=== PATIENT | female | born 1950 | race Caucasian/White ===

== ENCOUNTER 2020-11-13 09:42 | Emergency (ER) | payer OTHER, MEDICARE, SELFPAY ==
[2020-11-13 09:56] VITALS: BP 152/92; PULSE 80; RESP 14; TEMP 36.6; O2SAT 99
--- NOTE | 2020-11-13 10:50 | ED.ANIMALBIT ---
HPI - Animal Bite General Chief Complaint: Animal Bite <Tran Davies PA-C - Last Filed: 11/13/20 10:55> Stated Complaint: dog bite <Tran Davies PA-C - Last Filed: 11/13/20 10:55> Time Seen by Provider: 11/13/20 10:33 <Tran Davies PA-C - Last Filed: 11/13/20 10:55> Source: patient <ROSA Castaneda Last Filed: 11/13/20 10:55> Mode of arrival: ambulatory <Tran Davies PA-C - Last Filed: 11/13/20 10:55> Limitations: no limitations <Tran Davies PA-C - Last Filed: 11/13/20 10:55> History of Present Illness HPI narrative: This is a 70-year-old female that presents to the emergency department after a dog bite yesterday. Reports she was at work and was bitten by a pit bull on the stomach. Reports bruising and pain to the area. Also reports the dog scratched her leg. She was told that the dog is up-to-date on its vaccinations. She is up-to-date on her tetanus vaccine. She cleaned the area and has applied some antibiotic ointment. Denies fever, erythema, edema, or abnormal drainage. <Tran Davies PA-C - Last Filed: 11/13/20 10:55> Related Data Allergies/Adverse Reactions: Allergies Allergy/AdvReac Type Severity Reaction Status Date / Time No Known Allergies Allergy Verified 11/13/20 10:00 <Tran Davies PA-C - Last Filed: 11/13/20 10:55> Review of Systems Review of Systems: CONSTITUTIONAL: Denies fever SKIN: Reports animal bite <Tran Davies PA-C - Last Filed: 11/13/20 10:55> All systems reviewed & are unremarkable except as noted in HPI and below <Tran Davies PA-C - Last Filed: 11/13/20 10:55> [facility] Past Medical History Medical History: Medical History (Updated 11/13/20 @ 10:54 by Tran Davies PA-C) No active medical problems <Tran Davies PA-C - Last Filed: 11/13/20 10:55> Social History Social History: Social History (Updated 11/13/20 @ 10:51 by Tran Davies PA-C) Smoking status: Current every day smoker <Tran Davies PA-C - Last Filed: 11/13/20 10:55> Exam Narrative: GENERAL: Well-appearing, well-nourished, and in no acute distress. HEAD: Normocephalic, atraumatic. EYES: EOMI. ABDOMEN: Soft, nondistended. Right lower abdomen with small area of bruising with superficial abrasions EXTREMITIES: Normal range of motion. No edema. Right upper leg with small area of bruising with superficial abrasions SKIN: Warm, dry, no rash. NEURO: No focal deficits. Alert and oriented x3. PSYCH: Normal mood and affect <Tran Davies PA-C - Last Filed: 11/13/20 10:55> Course Vital Signs Vital signs: Vital Signs Temperature 97.8 F 11/13/20 09:56 Pulse Rate 80 11/13/20 09:56 Respiratory Rate 14 11/13/20 09:56 Blood Pressure 152/92 H 11/13/20 09:56 Pulse Oximetry 99 11/13/20 09:56 Temperature 97.8 F 11/13/20 09:56 Pulse Rate 79 11/13/20 11:07 Respiratory Rate 18 11/13/20 11:07 Blood Pressure 149/90 H 11/13/20 11:07 Pulse Oximetry 99 11/13/20 11:07 <Tran Davies PA-C - Last Filed: 11/13/20 10:55> Vital Signs Temperature 97.8 F 11/13/20 09:56 Pulse Rate 80 11/13/20 09:56 Respiratory Rate 14 11/13/20 09:56 Blood Pressure 152/92 H 11/13/20 09:56 Pulse Oximetry 99 11/13/20 09:56 Temperature 97.8 F 11/13/20 09:56 Pulse Rate 79 11/13/20 11:07 Respiratory Rate 18 11/13/20 11:07 Blood Pressure 149/90 H 11/13/20 11:07 Pulse Oximetry 99 11/13/20 11:07 <Vilma Oliver MD - Last Filed: 11/13/20 15:11> MDM - Animal Bite MDM Narrative Medical decision making narrative: Patient presents to the emergency department after an animal bite yesterday. Was bitten by a dog that is reportedly up-to-date on its vaccinations. Patient is up-to-date on her tetanus vaccine. There are no active signs of infection on exam today. The wounds appear to be fairly superficial. Wounds were cleansed and antibiotic ointme
[2020-11-13] MEDS: AMOXICILLIN/CLAVULANATE K 875-125 MG TAB 1 TABLET PO (10:59)
[2020-11-13 11:07] VITALS: BP 149/90; PULSE 79; RESP 18; O2SAT 99
== END 2020-11-13 11:09 | disposition home or self-care (01) ==
PROVIDERS: Emergency Provider General Practice
DX: S31.159A Open bite of abdominal wall, unspecified quadrant without penetration into peritoneal cavity, initial encounter (principal); F17.200 Nicotine dependence, unspecified, uncomplicated; W54.0XXA Bitten by dog, initial encounter
CPT/HCPCS: 99283; A9270

== ENCOUNTER 2020-11-20 08:39 | Emergency (ER) | payer OTHER, SELFPAY ==
--- NOTE | ~2020-11-20 | CT_ITS ---
EXAMINATION: CT abdomen pelvis w con DATE: 11/20/2020 10:53 INDICATION: Right abdominal pain. TECHNIQUE: Computed tomography (CT) of the abdomen and pelvis was performed with 100 mL Omnipaque 350 intravenous contrast. Automated exposure control and iterative reconstruction technique were employe d. The dose-length product was 1235.42 mGy-cm. COMPARISON: None. FINDINGS: The visualized portions of the lung bases demonstrate peripheral septal thickening, consist ent with chronic interstitial lung disease. There is mild emphysema. No pleural effusion. There is le ft atrial enlargement of the heart. There are coronary artery calcifications. There are calcification s of aortic valve. No pericardial effusion. The liver and spleen are normal. There are changes of cho lecystectomy. The pancreas and adrenal glands are normal. There is cortical thinning of the kidneys. There is a small left inguinal hernia containing fat. There is diverticulosis of the colon without ev idence of diverticulitis. The appendix is normal. There are no dilated loops of bowel. There are no p athologically enlarged lymph nodes. There is no free intraperitoneal fluid. There is a supraumbilical ventral hernia containing fat. There is moderate stenosis of right renal artery. There is skin thick ening in anterior abdominal wall in right lower quadrant. There is an old compression fracture of L2. There is severe lower lumbar spondylosis. IMPRESSION: 1. Small left inguinal hernia containing fat. 2. Severe stenosis of right renal artery. 3. Mild chronic interstitial lung disease. Reviewed, dictated and finalized at location A.
[2020-11-20 08:59] VITALS: BP 174/84; PULSE 71; RESP 18; TEMP 36.7; O2SAT 99
--- NOTE | 2020-11-20 09:38 | ED.ANIMALBIT ---
HPI - Animal Bite General Chief Complaint: Animal Bite Stated Complaint: dog bite complications Time Seen by Provider: 11/20/20 09:09 Source: RN notes reviewed History of Present Illness HPI narrative: Patient presents emergency department from home for possible wound infection. Patient states she was bit by a pit bull in the right abdomen approximately 8 days ago. She states 7 days ago she was seen here emergency department and evaluated and started on antibiotics which she took for 5 days. States over the past 2 days she is on the wound has become more tender and she notes some redness around the wound she denies any drainage from the wound she denies any new trauma or injury she denies any fevers nausea or vomiting patient states that she did take her antibiotics for 5 days and everything have been healing well until her antibiotics ended and that is when symptoms are worsened Related Data Allergies Allergy/AdvReac Type Severity Reaction Status Date / Time No Known Allergies Allergy Verified 11/20/20 09:03 Review of Systems Review of Systems: Gen.: Denies fevers or chills ENT: Denies congestion Respiratory: Denies shortness of breath or cough CV: Denies chest pain or palpitations GI: Denies abdominal pain nausea, emesis or diarrhea Musculoskeletal: Denies back pain or muscle pain Neuro: Denies numbness, tingling, weakness or focal weakness Skin: See HPI Except as documented, all other systems reviewed and negative PMFSH Past Medical History Medical History No active medical problems Social History Social History Smoking status: Current every day smoker Exam Narrative: APPEARANCE: No acute distress, nontoxic, resting in bed EYES: EOMI HEENT: Normocephalic, atraumatic, OMM RESPIRATORY: No respiratory distress Clear to auscultation bilaterally with no rhonchi wheezing or rales. CARDIOVASCULAR: Regular rate and rhythm without murmurs rubs or gallops. ABDOMINAL: Soft, nontender, nondistended, no rebound or guarding MUSCULOSKELETAl: Moves all extremities. No clubbing, cyanosis or edema. NEURO: Awake and alert. Following commands, speech normal, no focal deficits SKIN:: Warm, dry. The right lower abdomen over the penis has an area of healing wound that is currently closed with no active drainage there is surrounding erythema in the area is tender to palpation no fluctuance, right anterior superior thigh has a healing wound that has minimal erythema no active drainage PSYCHIATRIC: Normal affect/mood, Course Course Emergency Course: Discussed with patient results of workup and diagnosis. Discussed need for follow-up with primary care, proper use of medication, and reasons to return to the emergency department. Patient understands and agrees to current treatment plan Vital Signs Vital signs: Vital Signs Temperature 98.0 F 11/20/20 08:59 Pulse Rate 71 11/20/20 08:59 Respiratory Rate 18 11/20/20 08:59 Blood Pressure 174/84 H 11/20/20 08:59 Pulse Oximetry 99 11/20/20 08:59 Temperature 98.0 F 11/20/20 08:59 Pulse Rate 71 11/20/20 08:59 Respiratory Rate 18 11/20/20 08:59 Blood Pressure 174/84 H 11/20/20 08:59 Pulse Oximetry 99 11/20/20 08:59 MDM - Animal Bite Lab Data Result diagrams: 11/20/20 10:06 11/20/20 10:06 Labs: Lab Results 11/20/20 11/20/20 Range/Units 10:06 10:06 WBC 8.3 (4.5-10.0) K/mm3 RBC 4.60 (4.2-5.4) M/mm3 Hgb 13.1 (12.0-15.0) g/dL Hct 41.8 (37.0-47.0) % MCV 90.9 (80-100) fl MCH 28.5 (26-34) pg MCHC 31.3 L (32-36) g/dl RDW 15.4 H (11.5-14.5) % Plt Count 227 (150-375) k/mm3 MPV 9.1 (7.4-10.4) fl Immature Gran % (Auto) 0.2 (0-0.5) % Neut % (Auto) 58.2 (45.5-73.1) % Lymph % (Auto) 31.2 (18.3-44.2) % Wilkin % (Auto) 8.4 (2.6-8.5) % Eos % (Auto) 1.5 (0-4.4) % Baso % (
[2020-11-20 10:18] LABS: Basophils Percent Auto 0.5 % (0.2-1.2); Eosinophils Absolute Auto 0.1 K/mm3 (0-0.3); Eosinophils Percent Auto 1.5 % (0-4.4); Hematocrit 41.8 % (37.0-47.0); Hemoglobin 13.1 g/dL (12.0-15.0); Immature Granulocyte Absolute 0.02 K/mm3 (0.00-0.031); Immature Granulocyte Percent A 0.2 % (0-0.5); Lymphocytes Absolute Auto 2.58 K/mm3 (0.9-3.2); Lymphocytes Percent Auto 31.2 % (18.3-44.2); Mean Corpuscular HGB Conc 31.3 g/dl (32-36); Mean Corpuscular Hemoglobin 28.5 pg (26-34); Mean Corpuscular Volume 90.9 fl (80-100); Mean Platelet Volume 9.1 fl (7.4-10.4); Monocytes Absolute Auto 0.7 K/mm3 (0.1-0.6); Monocytes Percent Auto 8.4 % (2.6-8.5); Neutrophils Absolute Auto 4.8 K/mm3 (1.3-6.7); Neutrophils Percent Auto 58.2 % (45.5-73.1); Platelet Count Result 227 k/mm3 (150-375); Red Cell Distribution Width 15.4 % (11.5-14.5); White Blood Count 8.3 K/mm3 (4.5-10.0)
[2020-11-20 10:26] LABS: Alanine Aminotransferase 14 U/L (4-35); Albumin Level 3.8 g/dL (3.5-5.1); Alkaline Phosphatase 113 U/L (38-126); Anion Gap 6 mmol/L (8-16); Aspartate Amino Transferase 29 U/L (14-36); Bilirubin,Total 0.5 mg/dL (0.2-1.3); Blood Urea Nitrogen 18 mg/dL (7-17); Carbon Dioxide 23 mmol/L (22-30); Chloride 103 mmol/L (98-107); Estimated CRCL calculation 32 ml/min; Estimated Glomerular Filt Rate 37; Glucose 88 mg/dL (65-110); Potassium 4.3 mmol/L (3.4-5.0); Sodium 132 mmol/L (137-145)
[2020-11-20] MEDS: AMOXICILLIN/CLAVULANATE K 875-125 MG TAB 1 TABLET PO (11:43)
[2020-11-20 11:45] VITALS: BP 171/84; PULSE 61; RESP 15; O2SAT 99
== END 2020-11-20 11:46 | disposition home or self-care (01) ==
PROVIDERS: Emergency Provider Emergency Medicine
DX: L03.311 Cellulitis of abdominal wall (principal); S31.159A Open bite of abdominal wall, unspecified quadrant without penetration into peritoneal cavity, initial encounter; J84.9 Interstitial pulmonary disease, unspecified; F17.200 Nicotine dependence, unspecified, uncomplicated; K40.90 Unilateral inguinal hernia, without obstruction or gangrene, not specified as recurrent; W54.0XXA Bitten by dog, initial encounter; I70.1 Atherosclerosis of renal artery
CPT/HCPCS: 36415; 74177; 80053; 85025; 99284; A4565; A9270; Q9967